=== PATIENT | male | born 1995 ===

== ENCOUNTER 2017-10-26 00:03 | Emergency (ER) | payer OTHER ==
--- NOTE | 2017-10-26 01:48 | C.PDOC ---
History Of Present Illness 21 year old male presents to the ER with a complaint of a rash that began at approximately 22:30. Patient reports he ate shrimp for dinner; however, reports he has eaten shrimp before in the past with no reaction. Patient states he took benadryl with some improvement, but in addition to the rash he is complaining of a sore throat that began this morning. Denies fever, cough, or SOB. Time Seen by Provider: 10/26/17 00:29 Chief Complaint (Nursing): Allergic Reaction History Per: Patient History/Exam Limitations: no limitations Onset/Duration Of Symptoms: Hrs Current Symptoms Are (Timing): Still Present Recent travel outside of the [place]: No Past Medical History Reviewed: Historical Data, Nursing Documentation, Vital Signs Vital Signs: Last Vital Signs Temp 100.0 F H 10/26/17 01:57 Pulse 100 H 10/26/17 01:57 Resp 16 10/26/17 01:57 BP 130/66 10/26/17 01:57 Pulse Ox 99 10/26/17 03:23 Family History: States: Unknown Family Hx - Social History Hx Alcohol Use: Yes Hx Substance Use: No - Immunization History Hx Tetanus Toxoid Vaccination: No Hx Influenza Vaccination: No Hx Pneumococcal Vaccination: No Review Of Systems Constitutional: Negative for: Fever, Chills ENT: Positive for: Throat Pain Respiratory: Negative for: Cough, Shortness of Breath Skin: Positive for: Rash Physical Exam - Physical Exam Appears: Non-toxic Skin: Warm, Dry, Rash (Urticarial to upper chest and upper arms) Head: Atraumatic, Normacephalic Eye(s): bilateral: Normal Inspection Ear(s): Bilateral: Normal Oral Mucosa: Moist Tongue: Normal Appearing, No Swelling Lips: Normal Appearing, No Swelling Throat: Erythema (Mild), No Exudate, No Other (Swelling) Neck: Normal, Supple Chest: Symmetrical, No Tenderness Cardiovascular: Rhythm Regular Respiratory: Normal Breath Sounds, No Rales, No Rhonchi, No Stridor, No Wheezing Gastrointestinal/Abdominal: Soft, No Tenderness Neurological/Psych: Oriented x3, Normal Speech, Other (No focal deficits) ED Course And Treatment O2 Sat by Pulse Oximetry: 99 (Room air) Pulse Ox Interpretation: Normal Medical Decision Making Medical Decision Making: Plan: * Tylenol * Rapid strep Rapid strep was negative. On reevaluation, patient reports improvement of pain and rash, he is resting comfortably, speaking in complete sentences, without any itching and not in any respiratory distress. Will discharge home with instructions to follow up with PMD for further evaluation or return to the ER for any worsening of symptoms. Disposition Counseled Patient/Family Regarding: Diagnosis, Need For Followup - Disposition Referrals: Non [facility] Provider, [Non-Staff] - Disposition: HOME/ ROUTINE Disposition Time: 01:46 Condition: GOOD Additional Instructions: Take Benadryl for any itching or rash every 4-6 hours Take Cepacol or lozenges for any throat pain Follow up with your primary medical doctor or clinic in 2-5 days for further evaluation. Return to the emergency department at any time if symptoms persist or worsen. 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 - Scribe Statement The provider has reviewed the documentation as recorded by the Scribvu Mann All medical record entries made by the Michael were at my direction and personally dictated by me. I have reviewed the chart and agree that the record accurately reflects my personal performance of the history, physical exam, medical decision making, and the department course for this patient. I have also personally directed, reviewed, and agree with the discharge instructions and disposition.
[2017-10-26 02:40] VITALS: BP 130/66; PULSE 100; RESP 16; TEMP 100
[2017-10-26 03:18] VITALS: O2SAT 99
== END 2017-10-26 01:58 | disposition home or self-care (01) ==
LOC: SUPCPDRO 00:03 → C.ER 00:03
DX: L50.0 Allergic urticaria (principal); J02.9 Acute pharyngitis, unspecified